=== PATIENT | male | born 1985 | race Caucasian/White ===

== ENCOUNTER → 2016-12-09 | Outpatient (CLI) | payer OTHER ==
--- NOTE | 2016-12-09 14:04 | DIAGNOSTIC IMAGING REPORT ---
LEFT FEMUR 4 VIEWS HISTORY: LEFT FEMUR PAIN COMPARISON: None. FINDINGS: There is no fracture or dislocation. Distal soft tissue swelling No radiopaque foreign bodies. Small ossific densities adjacent to the superior aspect of the acetabulum is likely chronic. The visualized pelvic bones are intact.. IMPRESSION: No fractures. Distal thigh soft tissue swelling. Electronically signed by: Chris Harry M.D. 12/09/2016 2:01 PM Dictated Date/Time: 12/09/2016 1:55 PM
== END | disposition home or self-care (01) ==
LOC: C.RAD1850 13:28
PROVIDERS: ATTEND Nurse Practitioner Adult Health
DX: M79.605 Pain in left leg (principal)